=== PATIENT | male | born 1960 | race Caucasian/White ===

== ENCOUNTER 2016-04-07 15:32 | Emergency (ER) | payer BC ==
[~2016-04-07] VITALS: Ht 193 cm; Wt 122.8 kg
[2016-04-07 15:37] VITALS: BP 150/99; PULSE 85; RESP 16; TEMP 99.4; O2SAT 98
[2016-04-07] MEDS ORDERED: NEXI40CA PO (15:52)
[2016-04-07] MEDS ORDERED: UROX10TA3 PO (15:52)
[2016-04-07] MEDS ORDERED: FENO1TAB76 PO (15:52)
[2016-04-07] MEDS ORDERED: LYRI100C PO (15:52)
[2016-04-07 15:56] LABS: GLUCOSE,URINE NEG (NEG); KETONE, URINE NEG (NEG); NITRITE,URINE NEG (NEG)
[2016-04-07 15:57] LABS: BLOOD, URINE MOD (NEG)
[2016-04-07 16:04] LABS: COMMENT (UR) CULT NOT INDICATED; CULTURE IF INDICATED CULT NOT INDICATED; METHOD OF COLLECTION CLEAN CATCH; SQUAMOUS EPITHELIAL CELL URINE 0-5 /hpf (0-5); URINE COLOR YELLOW (YELLW/STRAW)
[2016-04-07] MEDS ORDERED: SODIUM CHLOR 0.9% 1000 ML INJ 1,000 ML IV SCH (16:12)
[2016-04-07] MEDS ORDERED: KETOROLAC TROMETHAMINE 30 MG/ML (IVP) VIAL IVP ONE (16:15)
[2016-04-07] MEDS ORDERED: SODIUM CHLORIDE 0.9% FLUSH 5 ML FLUSH IVF PRN (16:15)
[2016-04-07 16:36] LABS: AUTOMATED NEUTROPHIL # 6.7 TH/MM3 (1.8-7.7); BASOPHIL # 0.1 TH/MM3 (0-0.2); BASOPHIL % 0.7 % (0.0-2.0); EOSINOPHIL # 0.1 TH/MM3 (0-0.4); EOSINOPHIL % 1.7 % (0.0-4.0); LYMPH % 12.2 % (9.0-44.0); LYMPHOCYTE # 1.1 TH/MM3 (1.0-4.8); MEAN CELL VOLUME 85.2 FL (80.0-100.0); MEAN CORPUSCULAR HGB CONC 32.8 % (32.0-36.0); MONO % 8.7 % (0.0-8.0); NEUT % 76.7 % (16.0-70.0); PLATELET COUNT 244 TH/MM3 (150-450); RED CELL DISTRIBUTION WIDTH 12.3 % (11.6-17.2); WHITE BLOOD COUNT 8.8 TH/MM3 (4.0-11.0)
[2016-04-07 16:37] LABS: HEMO FLAGS DIFF FINAL
--- NOTE | 2016-04-07 16:41 | PD ---
HPI Chief Complaint: Flank/Kidney Pain Time Seen by Provider: 16:03 Travel History International Travel<30 days: No Contact w/Intl Traveler<30days: No Traveled to known affect area: No History of Present Illness HPI Is a 55-year-old man who presents to the emergency department complaining of feeling poorly for a couple days with myalgias and chills and flulike symptoms. They started getting severe left-sided flank pain describes as a burning discomfort deep in the left flank. No nausea or vomiting. He had some chills last night. He otherwise had been feeling generally well and healthy. No urinary symptoms of these noticed. He did drink a lot of alcohol on . No other complaints. History Past Medical History Narrative Medical GERD Back problems Hyperlipidemia BPH Influenza Vaccination: No Social History Alcohol Use: No Tobacco Use: No Allergies-Medications (Allergen,Severity, Reaction): Coded Allergies: Penicillin (Verified Adverse Reaction, Mild, RASH, 04/07/16) Reported Meds & Prescriptions Reported Meds & Active Scripts Active Reported Tricor (Fenofibrate) 48 Mg Tab 48 Mg PO DAILY Tke with food. Lyrica (Pregabalin) 100 Mg Cap 100 Mg PO DAILY Uroxatral ER 24 HR (Alfuzosin ER 24 HR) 10 Mg Tab 10 Mg PO DAILY Nexium (Esomeprazole DR) 40 Mg Capdr 40 Mg PO DAILY Review of Systems Except as stated in HPI: all other systems reviewed are Neg Physical Exam Narrative GENERAL: Well-appearing 55-year-old man, no acute distress. SKIN: Warm and dry. HEAD: Atraumatic. Normocephalic. CARDIOVASCULAR: Regular rate and rhythm. No murmur appreciated. RESPIRATORY: No accessory muscle use. Clear to auscultation. Breath sounds equal bilaterally. GASTROINTESTINAL: Abdomen is soft, nontender nondistended. Mild left CVA tenderness to percussion. MUSCULOSKELETAL: No obvious deformities. No edema. NEUROLOGICAL: Awake and alert. No obvious cranial nerve deficits. Motor grossly within normal limits. Normal speech. PSYCHIATRIC: Appropriate mood and affect; insight and judgment normal. Data Data Last Documented VS Vital Signs Date Time Temp Pulse Resp B/P Pulse Ox O2 Delivery O2 Flow Rate FiO2 04/07/16 17:13 20 04/07/16 15:37 99.4 85 150/99 98 Orders Urinalysis - C+S If Indicated (04/07/16 15:38) Complete Blood Count With Diff (04/07/16 16:12) Ct Abd/Pel W/O Iv Contrast (04/07/16 16:12) Iv Access Insert/Monitor (04/07/16 16:12) Sodium Chlor 0.9% 1000 Ml Inj (Ns 1000 M (04/07/16 16:12) Sodium Chloride 0.9% Flush (Ns Flush) (04/07/16 16:15) Ketorolac Inj (Toradol Inj) (04/07/16 16:15) Lipase (04/07/16 16:13) Hepatic Functional Panel (04/07/16 16:13) Basic Metabolic Panel (Bmp) (04/07/16 16:21) Creatine Kinase (Cpk) (04/07/16 16:21) Labs Laboratory Tests Test 04/07/16 04/07/16 15:46 16:21 Urine Collection Type CLEAN CATCH Urine Color YELLOW Urine Turbidity CLEAR Urine pH 6.0 Urine Specific [place] 1.027 Urine Protein NEG mg/dL Urine Glucose (UA) NEG mg/dL Urine Ketones NEG mg/dL Urine Occult Blood MOD Urine Nitrite NEG Urine Bilirubin NEG Urine Leukocyte Esterase NEG Urine RBC 10-14 /hpf Urine Squamous Epithelial 0-5 /hpf Cells Urine Amorphous Sediment FEW Microscopic Urinalysis Comment CULT NOT INDICATED Urine Collection Time 1546 White Blood Count 8.8 TH/MM3 Red Blood Count 5.40 MIL/MM3 Hemoglobin 15.1 GM/DL Hematocrit 46.0 % Mean Corpuscular Volume 85.2 FL Mean Corpuscular Hemoglobin 28.0 PG Mean Corpuscular Hemoglobin 32.8 % Concent Red Cell Distribution Width 12.3 % Platelet Count 244 TH/MM3 Mean Platelet Volume 7.5 FL Neutrophils (%) (Auto) 76.7 % Lymphocytes (%) (Auto) 12.2 % Monocytes (%) (Auto) 8.7 % Eosinophils (%) (Auto) 1.7 % Basophils (%) (Auto) 0.7 % Neutrophils # (Auto) 6.7 TH/MM3 Lymphocytes # (Auto) 1.1 TH/MM3 Monocytes # (Auto) 0.8 TH/MM3 Eosinophils # (Auto) 0.1 TH/MM3 Basophils # (Auto) 0.1 TH/MM3 CBC Comment DIFF FINAL Differential Comment Sodium Level 139 MEQ/L Potassium Level 4.1 MEQ/L Chloride Level 106 MEQ/L Carbon Dioxide Level 23.9 MEQ/L Anion Gap 9 MEQ/L Blood Urea Nitrogen 23 MG/DL Creatinine 2.10 MG/DL Estimat Glomerular Filtration 33 ML/MIN Rate Random Glucose 119 MG/DL Calcium Level 8.5 MG/DL Total Bilirubin 0.6 MG/DL Direct Bilirubin 0.1 MG/DL Indirect Bilirubin 0.5 MG/DL Aspartate Amino Transf 16 U/L (AST/SGOT) Alanine Aminotransferase 29 U/L (ALT/SGPT) Alkaline Phosphatase 35 U/L Total Creatine Kinase 170 U/L Total Protein 6.9 GM/DL Albumin 3.6 GM/DL Lipase 153 U/L MDM Medical Decision Making Medical Screen Exam Complete: Yes Emergency Medical Condition: Yes Interpretation(s) LABS: CBC unremarkable. CMP with mildly elevated BUN/creatinine Lipase normal UA with microscopic hematuria CT abdomen and pelvis: 6 mm x 4 mm calculus proximal left ureter of left-sided obstructive uropathy and mild left hydronephrosis. Differential Diagnosis Kidney stone, UTI, dehydration, renal infarct, colitis, flulike syndrome, other Narrative Course Medical decision making Is a 55 old man presents emergent or 2 days of flulike symptoms and myalgias followed by severe left-sided flank pain. Suspect renal lithiasis. UA does have some hematuria. We'll check labs, CT, reassess. Diagnosis Primary Impression: Renal calculus, left Referrals: Yakov Boateng MD 3 days Additional Instructions: Follow-up with the urologist in the next 3-5 days. Return to the emergency department for any worsening pain, fevers, vomiting, or any other new or worsening symptoms. Med/Other Pt SpecificInfo: Prescription(s) given Scripts Ondansetron Odt (Zofran Odt)4 Mg Tab4 Mg SL Q8HR PRN (Nausea/Vomiting) #15 TAB May substitute non-ODT form. Prov:Allen Dooley MD 04/07/16 Hydrocodone-Acetaminophen (Lortab)5-325 Mg Tab1-2 Tab PO Q6H PRN (PAIN) #20 TAB Prov:Allen Dooley MD 04/07/16 Naproxen (Naprosyn)500 Mg Mex756 Mg PO BID PRN (PAIN SCALE 1 TO 10) #20 TAB Prov:Allen Dooley MD 04/07/16 Disposition: 01 DISCHARGE HOME Condition: Stable Allen Dooley MD Apr 07, 2016 16:41
[2016-04-07 16:46] LABS: POTASSIUM 4.1 MEQ/L (3.5-5.1)
[2016-04-07 16:49] LABS: BICARBONATE 23.9 MEQ/L (21.0-32.0)
[2016-04-07 16:54] LABS: INDIRECT BILIRUBIN 0.5 MG/DL (0.0-0.8); TOTAL BILIRUBIN ADULT 0.6 MG/DL (0.2-1.0)
--- NOTE | 2016-04-07 17:34 | RADHPO ---
EXAM DATE/TIME: 04/07/2016 16:59 [facility] COMPARISON: No previous studies available for comparison. INDICATIONS : Left flank abdomen pain. ORAL CONTRAST: No oral contrast ingested. RADIATION DOSE: 27.53 CTDIvol (mGy) MEDICAL HISTORY : Gastroesophageal reflux disease. SURGICAL HISTORY : Fusion, lumbar. ENCOUNTER: Initial ACUITY: 1 day PAIN SCALE: 5/10 LOCATION: Left flank abdomen TECHNIQUE: Volumetric scanning of the abdomen and pelvis was performed. Using automated exposure control and ad justment of the mA and/or kV according to patient size, radiation dose was kept as low as reasonably achievable to obtain optimal diagnostic quality images. FINDINGS: There is approximately 6 mm x 4 mm calculus in the proximal left ureter with left sided obstructive u ropathy and mild left hydronephrosis. Additional 1 mm nonobstructing calculus noted upper pole left k idney. No right-sided renal calculi or obstructive uropathy. Mild fatty liver. Spleen, adrenals, pancreas unremarkable. No calcified gallstones or biliary ductal dilatation. No free fluid. No bowel obstruction. No adenopathy. There is previous fusion lower lumbar spine. CONCLUSION: 1. 6 mm x 4 mm calculus proximal left ureter with left sided obstructive uropathy and mild left hydro nephrosis. Andre Mcmahon MD on April 07, 2016 at 17:25 Board Certified Radiologist. This report was verified electronically.
[2016-04-07] MEDS ORDERED: NAPR500 PO (17:57)
[2016-04-07] MEDS ORDERED: HYDR-3533 PO (17:57)
[2016-04-07] MEDS ORDERED: ZOFR4TAB3 SL (17:57)
[2016-04-07 18:23] VITALS: BP 156/76; PULSE 105; RESP 20; O2SAT 98
== END 2016-04-07 18:27 | disposition home or self-care (01) ==
LOC: PHED 15:32
DX: N20.0 Calculus of kidney (principal); N13.2 Hydronephrosis with renal and ureteral calculous obstruction; R68.83 Chills (without fever); M79.1 Myalgia; R31.29 Other microscopic hematuria; E78.5 Hyperlipidemia, unspecified; N40.0 Benign prostatic hyperplasia without lower urinary tract symptoms
CPT/HCPCS: 74176; 80048; 80076; 81001; 82550; 83690; 85025; 96361; 96374; 99284; J1885; J7030